=== PATIENT | female | born 1975 | race Caucasian/White ===

== ENCOUNTER → 2020-09-05 08:01 | Outpatient (CLI) | payer OTHER, SELFPAY ==
--- NOTE | ~2020-09-05 | MM_ITS ---
EXAMINATION: MM screening lizz BI w real HISTORY: Screening TECHNIQUE: Craniocaudal and mediolateral oblique 3-D tomosynthesis images were obtained and synthetic 2-D images were generated. CAD analysis was submitted and interpreted. COMPARISON: No prior studies for comparison. BREAST PARENCHYMAL COMPOSITION: There are scattered areas of fibroglandular density. FINDINGS: There is no evidence of suspicious mass, calcification, or architectural distortion to sugg est malignancy in either breast. There has been no suspicious interval change. IMPRESSION: 1. No mammographic evidence of malignancy. 2. Recommend routine screening mammography in one year. BI-RADS Category 1: Negative Reviewed, dictated and finalized at location A.
--- NOTE | ~2020-09-05 | DEXA_ITS ---
Bone Density Report Name: Bekah Petersen Age: 44 Sex: Female Ethnicity: White Date of : 1975 Indication: postmenopausal; Referring Provider: MARLENE GENAO Study: Bone densitometry was performed. Exam Date: September 05, 2020 Accession number: [id number] Bone Density: Region BMD T-score Z-score Classification AP Spine (L1-L4) 1.099 0.5 1.0 Normal Femoral Neck (Left) 0.821 -0.3 0.3 Normal Total Hip (Left) 0.949 0.1 0.4 Normal Femoral Neck (Right) 0.820 -0.3 0.3 Normal Total Hip (Right) 0.966 0.2 0.5 Normal Total Hip Mean 0.958 0.2 0.5 Normal World Health Organization criteria for BMD impression classify patients as: Normal (T-score at or above -1.0), Osteopenia (T-score between -1.0 and -2.5), or Osteoporosis (T-score at or below -2.5). 10-year Fracture Risk: FRAX not reported because: All T-scores for Spine Total, Hip Total, Femoral Neck at or above -1.0 Clinical Information Provided by Patient: Has used the following medications: Calcium, calcium includes vit D Patient maximum height was 68 Menopause Age: 41 Drinks caffeinated beverages Onset of menses at age 8 Number of children 2 Impression: The patient has normal bone mass. Discussion: BONE DENSITY IS ABOVE THE MINIMUM DESIRABLE LEVEL AT ALL SKELETAL SITES TESTED. This patient?s bone mineral density is above the minimum desirable level (T-score -1.0 or better) at all sites measured. The patient should follow a healthful lifestyle (good nutrition with adequate calcium and vitamin D, and appropriate weight-bearing exercise). Follow-Up: Consider repeating this study in 5 years or sooner if there is some new clinical indication. Reported by: CHRISTOPH on 09/05/2020 9:00:00 AM. Reviewed, dictated and finalized at location A. [facility] SYSTEMNahomi
== END ==
PROVIDERS: PCP Emergency Medicine; Visit Provider Emergency Medicine
DX: Z12.31 Encounter for screening mammogram for malignant neoplasm of breast (principal); Z78.0 Asymptomatic menopausal state
CPT/HCPCS: 77063; 77067; 77080

== ENCOUNTER → 2022-08-17 10:51 | Outpatient (CLI) | payer OTHER, SELFPAY ==
--- NOTE | ~2022-08-17 | MM_ITS ---
EXAMINATION: MM screening lizz BI w real HISTORY: Screening mammogram TECHNIQUE: Craniocaudal and mediolateral oblique 3-D tomosynthesis images were obtained and synthetic 2-D images were generated. CAD analysis was submitted and interpreted. COMPARISON: 09/05/2020 bilateral screening mammogram BREAST PARENCHYMAL COMPOSITION: There are scattered areas of fibroglandular density. FINDINGS: There is no evidence of suspicious mass, calcification, or architectural distortion to sugg est malignancy in either breast. There has been no suspicious interval change. IMPRESSION: 1. No mammographic evidence of malignancy. 2. Recommend routine screening mammography in one year. BI-RADS Category 1: Negative Reviewed, dictated and finalized at location A.
== END ==
PROVIDERS: PCP Obstetrics & Gynecology; Visit Provider Emergency Medicine
DX: Z12.31 Encounter for screening mammogram for malignant neoplasm of breast (principal)
CPT/HCPCS: 77063; 77067

== ENCOUNTER 2024-08-22 10:58 | Outpatient (CLI) | payer OTHER, SELFPAY ==
--- NOTE | ~2024-08-22 | DEXA_ITS ---
Bone Density Report Name: NOEMY GRAYSON Age: 48 Sex: Female Ethnicity: White Date of : 1975 Indication: postmenopausal; screening for osteoporosis; height loss; Referring Provider: LIZETTE, ANDRIY Magallon Study: Bone densitometry was performed. Exam Date: August 22, 2024 Accession number: [id number] Bone Density: Region BMD T-score Z-score Classification AP Spine(L1-L4) 1.053 0.1 0.8 Normal Femoral Neck (Left) 0.767 -0.7 0.0 Normal Total Hip (Left) 0.885 -0.5 0.0 Normal Femoral Neck (Right) 0.760 -0.8 0.0 Normal Total Hip (Right) 0.931 -0.1 0.4 Normal Total Hip Mean 0.908 -0.3 0.2 Normal World Health Organization criteria for BMD impression classify patients as: Normal (T-score at or above -1.0), Osteopenia (T-score between -1.0 and -2.5), or Osteoporosis (T-score at or below -2.5). 10-year Fracture Risk: FRAX not reported because: All T-scores for Spine Total, Hip Total, Femoral Neck at or above -1.0 Clinical Information Provided by Patient: Has used the following medications: Vitamin D, Calcium Patient maximum height was 68 Menopause Age: 41 Drinks caffeinated beverages Onset of menses at age 8 Number of children 2 Impression: The patient has normal bone mass. Discussion: BONE DENSITY IS ABOVE THE MINIMUM DESIRABLE LEVEL AT ALL SKELETAL SITES TESTED. This patient?s bone mineral density is above the minimum desirable level (T-score -1.0 or better) at all sites measured. The patient should follow a healthful lifestyle (good nutrition with adequate calcium and vitamin D, and appropriate weight-bearing exercise). Follow-Up: Consider repeating this study in 5 years or sooner if there is some new clinical indication. Reported by: GRISEL on 08/22/2024 11:35:00 AM. Reviewed, dictated and finalized at location A.
--- OUTSIDE RECORDS SUMMARY | 2024-08-22 11:03 | XMS_ITS | Encounter Summary ---
Author Organization [facility] Address [address] [facility] [facility] [place] [address] Care Team Providers Care Healthcare Administration Internship Name Role Phone Unavailable Primary Care Provider Unavailabl e Encounter Details Date Type Department Care Team (Late st Contact Info) Description 01/02/2023 Lab Requisition [facility] - DermPath Lab [address] [facility], [place] [address] Neela Pineda DO [address] [facility] [address] [place] [address] Social History Tobacco Use Types Packs/Day Years Used Date Smoking Tobacco: Never Assessed Comments Unknown Sex and Gender Information Value Date Recorded Sex Assigned at Not on file Legal Sex Female 10:15 AM BLADDER TIER Gender Identity Not on file Sexual Orientation Not on file documented as of this encounter Plan of Treatment Not on file documented as of this encounter Procedures Procedure Name Priority Date/Time Associated Diagnosis Comments DERMATOPATHOLOGY Routine 01/02/2023 10:0 2 AM BLADDER TIER documented in this encounter Results * DERMATOPATHOLOGY (01/02/2023 10:02 AM BLADDER TIER) Case Report Dermatopathology Report Case: [id number] Authorizing Provider: Neela Pineda DO Collected: 01/02/2023 10:02 AM Ordering Location: [facility] DermPath Lab Received: 01/04/2023 08:00 AM Pathologist: Teresa Flores MD Specimen: Skin, right htigh 12:55 PM BLADDER TIER DERMATOPATHOLOGY LABORATORY Final Diagnosis Specimen A. SKIN, right thigh: NEVUS LIPOMATOSUS SUPERFICIALIS (D17.30) 12:55 PM BLADDER TIER DERMATOPATHOLOGY LABORATORY at 1255 BLADDER TIER Clinical History Nev-LIP vs IDN Irritated 3 12:55 PM [facility] DERMATOPATHOLOGY LABORATORY Gross Description Specimen A: Received is one formalin filled container labeled with the patient's name and designated right thigh. The specimen consists of a shave biopsy measuring 10x7x5 mm. Jar 0. 3 12:55 PM [facility] DERMATOPATHOLOGY LABORATORY Microscopic Description Specimen A. SKIN, right thigh: There is a gently folded epidermis surrounding a connective tissue core in which fat and collagen are intermingled. 3 12:55 PM [facility] DERMATOPATHOLOGY LABORATORY Disclaimer An external and internal positive and negative controls are appropriate for the histochemical, immunohistochemical and immunofluorescence stain(s) in this case (if any), except where stated explicitly. The performance characteristics of the stain(s) cited in this report were developed and its performance characteristic determined by the Dermatopathology Laboratory at [facility], directed by Dr. Katia Quinn. These tests need not be, and therefore are not, approved by the [place] Food and Drug Administration. The tests are used for clinical purposes. Billing Codes Specimen Charges Stain Charges 04618 1 3 12:55 PM [facility] DERMATOPATHOLOGY LABORATORY Embedded Images 3 12:55 PM [facility] DERMATOPATHOLOGY LABORATORY Pathology/Cytolo gy TISSUE SPECIMEN FROM SKIN / Unknown 01/02/2023 10:02 AM BLADDER TIER 01/04/2023 8:00 AM BLADDER TIER us Neela Pineda DO LAB - PATHOLOGY/CYTOLOGY ORDERABLES Final Result DERMATOPATHOLOGY LABORATORY [facility] - Department of Dermatology [address], [address] [phone] documented in this encounter Visit Diagnoses Not on filedocumented in this encounter
--- OUTSIDE RECORDS SUMMARY | 2024-08-22 11:03 | XMS_ITS | Referral Summary ---
Author Organization [facility] [address] Address [address] [place] [address] Care Team Providers Care Sugar Plantation Manager Name Role Phone Andrew Zabala MD Primary Care Provider [phone] Allergies Active Allergy Reactions Criticality Noted Date Comments Penicillins Hives Reaction: HIVES, Medications triamcinolone (KENALOG) 0.1 % creamIndications :skin rash Apply topically 2 (two) times a day for 7 days Do not apply to face around eyes or to genitals 30 g 4 Active predniSONE (DELTASONE) 10 mg tabletIndication s:Rash and nonspecific skin eruption Take 3 tabs days 1 & 2, 2 tabs days 3 & 4, 1 tab days 5-7. 13 tablet 4 Active Active Problems No known active problems Social History Tobacco Use Types Packs/Day Years Used Date Smoking Tobacco: Never Comments Unknown Sex and Gender Information Value Date Recorded Sex Assigned at Not on file Legal Sex Female 9:11 AM FLOORWORKER DISTRIBUTOR Gender Identity Not on file Sexual Orientation Not on file Last Filed Vital Signs Vital Sign Reading Time Taken Comments Blood Pressure 131/82 01/14/2024 9:27 AM FLOORWORKER DISTRIBUTOR Pulse 57 01/14/2024 9:27 AM FLOORWORKER DISTRIBUTOR Temperature 37 C (98.6 F) 01/14/2024 9:27 AM FLOORWORKER DISTRIBUTOR Respiratory Rate 16 01/14/2024 9:27 AM FLOORWORKER DISTRIBUTOR Oxygen Saturation 100% 01/14/2024 9:27 AM FLOORWORKER DISTRIBUTOR Inhaled Oxygen Concentration - - Weight 68 kg (150 lb) 01/14/2024 9:27 AM FLOORWORKER DISTRIBUTOR Height 170.2 cm (5' 7) 01/14/2024 9:27 AM FLOORWORKER DISTRIBUTOR Body Mass Index 23.49 01/14/2024 9:27 AM FLOORWORKER DISTRIBUTOR Plan of Treatment Not on file Procedures Procedure Name Priority Date/Time Associated Diagnosis Comments SCREENING MAMMOGRAM BILATERAL W DAMIR Routine 12/03/2015 12:00 AM CDT from Last 3 Months or Most Recently Relevant to Health Maintenance Results * Screening Mammogram Bilateral W Damir (12/03/2015 12:00 AM CDT) Anatomical Region Laterality Modality Breast Bilateral Mammography 12/03/2015 12:1 5 PM CDT Narrative 12/08/2015 10:02 AM CDT - SCREENING MAMM W DAMIR BI BILATERAL FIRST EVER DIGITAL SCREENING MAMMOGRAM 3D/2D WITH CAD: 12/03/2015 CLINICAL: Routine screening. Routine checkup. Patient has no complaints. Baseline examination. No prior exams were available for comparison. There are scattered fibroglandular elements in both breasts. Current study was also evaluated with a Computer Aided Detection (CAD) system. No significant masses, calcifications, or other findings are seen in either breast. IMPRESSION: NEGATIVE There is no mammographic evidence of malignancy. A 1 year screening mammogram is recommended. The patient will be contacted by letter. Mariela Delatorre M.D. o/penrad:12/08/2015 07:51:47 letter sent: Normal Exam Mammogram BI-RADS: 1 Negative Radiologist: MARIELA DELATORRE MD Attending: KRISTEN DE LEÓN M.D. Requesting: KRISTEN DE LEÓN M.D. Requesting Requesting ID: [id number] Attending Attending ID: [id number] Completed Time: 12/03/2015 12:15 AM Dictated Time: N/A Transcribed Time: 12/08/2015 10:02 AM Signed by: MARIELA DELATORRE MD on 12/08/2015 10:02 AM Report To 1 ID: Report To 1 Name: , Report To 1 FAX: Report To 2 ID: Report To 2 Name: , Report To 2 FAX: Report To 3 ID: Report To 3 Name: , Report To 3 FAX: NextGen Order #: Procedure Note Provider, MD Jose Miguel - 06/28/2016 - SCREENING MAMM W DAMIR BI BILATERAL FIRST EVER DIGITAL SCREENING MAMMOGRAM 3D/2D WITH CAD: 12/03/2015 CLINICAL: Routine screening. Routine checkup. Patient has no complaints. Baseline examination. No prior exams were available for comparison. There are scattered fibroglandular elements in both breasts. Current study was also evaluated with a Computer Aided Detection (CAD) system. No significant masses, calcifications, or other findings are seen in either breast. IMPRESSION: NEGATIVE There is no mammographic evidence of malignancy. A 1 year screening mammogram is recommended. The patient will be contacted by letter. Mariela Delatorre M.D. o/penrad:12/08/2015 07:51:47 letter sent: Normal Exam Mammogram BI-RADS: 1 Negative Radiologist: MARIELA DELATORRE MD Attending: KRISTEN DE LEÓN M.D. Requesting: KRISTEN DE LEÓN M.D. Requesting Requesting ID: [id number] Attending Attending ID: [id number] Completed Time: 12/03/2015 12:15 AM Dictated Time: N/A Transcribed Time: 12/08/2015 10:02 AM Signed by: MARIELA DELATORRE MD on 12/08/2015 10:02 AM Report To 1 ID: Report To 1 Name: , Report To 1 FAX: Report To 2 ID: Report To 2 Name: , Report To 2 FAX: Report To 3 ID: Report To 3 Name: , Report To 3 FAX: NextGen Order #: Historical Provider MD PEDRAZA MAMMO PROCEDURES Khushi l Result from Last 3 Months or Most Recently Relevant to Health Maintenance Insurance [facility] [id number] Care Teams Sugar Plantation Manager Relationship Specialty Start Date End Date Andrew Zabala MD [address] [place] [address] [place] [address] PCP - General Family Medicine 10/13/21
--- OUTSIDE RECORDS SUMMARY | 2024-08-22 11:03 | XMS_ITS | Encounter Summary ---
Author Organization [facility] Address [address] [place] [address] Care Team Providers Care Php Website Developer Name Role Phone Unavailable Primary Care Provider Unavailabl e Encounter Details Date Type Department Care Team (Late st Contact Info) Description 01/25/2024 Lab Requisition [facility] - DermPath Lab [address] [facility], [place] [address] Neela Pineda DO [address] [facility] [address] [place] [address] Social History Tobacco Use Types Packs/Day Years Used Date Smoking Tobacco: Never Assessed Comments Unknown Sex and Gender Information Value Date Recorded Sex Assigned at Not on file Legal Sex Female 10:15 AM MIXED SIGNAL DESIGN ENGINEER Gender Identity Not on file Sexual Orientation Not on file documented as of this encounter Plan of Treatment Not on file documented as of this encounter Procedures Procedure Name Priority Date/Time Associated Diagnosis Comments DERMATOPATHOLOGY Routine 01/25/2024 2:26 PM MIXED SIGNAL DESIGN ENGINEER documented in this encounter Results * DERMATOPATHOLOGY (01/25/2024 2:26 PM MIXED SIGNAL DESIGN ENGINEER) Case Report Dermatopathology Report Case: [id number] Authorizing Provider: Neela Pineda DO Collected: 01/25/2024 02:26 PM Ordering Location: [facility] - Received: 01/26/2024 01:59 PM DermPath Lab Pathologist: Teresa Flores MD Specimen: Skin, left wrist 1:40 PM MIXED SIGNAL DESIGN ENGINEER DERMATOPATHOLOGY LABORATORY Final Diagnosis Specimen A. SKIN, left wrist: SPONGIOTIC AND INTERFACE DERMATITIS (L30.8) (see microscopic description and comment) 4 1:40 PM MIXED SIGNAL DESIGN ENGINEER DERMATOPATHOLOGY LABORATORY at 1340 MIXED SIGNAL DESIGN ENGINEER Clinical History R/O ACD vs Lichen Striatus vs Sporotrichosis vs Wolfs vs Other 4 1:40 PM [facility] DERMATOPATHOLOGY LABORATORY Gross Description Specimen A: Received is one formalin filled container labeled with the patient's name and designated left wrist. The specimen consists of a punch biopsy measuring 3x2x1 mm. Jar 0. 1:40 PM [facility] DERMATOPATHOLOGY LABORATORY Microscopic Description Specimen A. SKIN, left wrist: Epidermis with superficial and mid dermis are present for evaluation. There is focal parakeratosis and mild spongiosis of the epidermis. In addition, there is focal vacuolar alteration along the basal cell layer. In the dermis there is a mainly superficial perivascular lymphoid infiltrate. Eosinophils are not seen. Focal perieccrine lymphoid infiltrate is seen. Grocott's methenamine silver (GMS) stain is negative for fungal elements in the sections examined. CD163 immunostain reveals scattered histiocytes. Treponema pallidum immunostain does not reveal spirochetes. WALE stain is negative for acid-fast mycobacteria in the sections examined. Multiple additional deeper sections were obtained and reviewed. COMMENT: The histologic differential diagnosis includes lichen planus, connective tissue disease, lichen striatus, and less likely a lichenoid hypersensitivity reaction, such as to contact or drug, given the lack of eosinophils. Stevenson's isotopic response cannot be excluded. 4 1:40 PM [facility] DERMATOPATHOLOGY LABORATORY Disclaimer An external and internal positive and negative controls are appropriate for the histochemical, immunohistochemical and immunofluorescence stain(s) in this case (if any), except where stated explicitly. The performance characteristics of the stain(s) cited in this report were developed and its performance characteristic determined by the Dermatopathology Laboratory at [facility], directed by Dr. Katia Quinn. These tests need not be, and therefore are not, approved by the [place] Food and Drug Administration. The tests are used for clinical purposes. Billing Codes Specimen Charges Stain Charges 13358 1 80033 98361 47086 33677 1 1 1 1 4 1:40 PM [facility] DERMATOPATHOLOGY LABORATORY Embedded Images 1:40 PM [facility] DERMATOPATHOLOGY LABORATORY Pathology/Cytolo gy TISSUE SPECIMEN FROM SKIN / Unknown 01/25/2024 2:26 PM MIXED SIGNAL DESIGN ENGINEER 01/26/2024 1:59 PM MIXED SIGNAL DESIGN ENGINEER us Neela Pineda DO LAB - PATHOLOGY/CYTOLOGY ORDERABLES Final Result DERMATOPATHOLOGY LABORATORY [facility] - Department of Dermatology [facility] Medicine [address] [place] [address], [address] [phone] documented in this encounter Visit Diagnoses Not on filedocumented in this encounter
--- OUTSIDE RECORDS SUMMARY | 2024-08-22 11:03 | XMS_ITS | Clinical Summary ---
Author Organization [facility] Address [address] [place] [address] Care Team Providers Care Computer Tape Librarian Name Role Phone Unavailable Primary Care Provider Unavailabl e Source Comments [facility],non-owned Affiliates and Associated Physician Practices is amultiple site organization consisting of ambulatory clinics and hospital sitesin [place], [place], [place] and [place]. This disclosure is being madepursuant to the Care Everywhere program and may not contain all information available regarding this patient. Last updated 17.[facility] Social History Tobacco Use Types Packs/Day Years Used Date Smoking Tobacco: Never Assessed Comments Unknown Sex and Gender Information Value Date Recorded Sex Assigned at Not on file Legal Sex Female 10:15 AM POLYMERIZATION ENGINEER Gender Identity Not on file Sexual Orientation Not on file Plan of Treatment Health Maintenance Due Date Last Done Comments COLOGUARD (AGES 45-75) - COL ON CA SCREENING 1973 COLON MONITORING 1973 COLONOSCOPY - COLON CA SCREENING 1973 CT COLONOGRAPHY - COLON CA SCREENING 1975 Colorectal Cancer Screening 1973 FIT - COLON CA SCREENING 1973 FLEX SIG - COLON CA SCREENING 1973 LIPID TESTING 1975 MAMMOGRAM 1973 HIV SCREENING 1988 HEPATITIS C SCREENING 11/23/1991 DTAP/TDAP/TD VACCINES (1 - Tdap) 1992 HEPATITIS B VACCINE (1 of 3 - 19+ 3-dose series) 1992 PAP SMEAR 1994 COVID-19 VACCINE (1 - 2023-2 5 season) 2023 PNEUMOCOCCAL VACCINE 50+ (1 of 1 - PCV) 11/28/2023 ZOSTER VACCINE (1 of 2) 11/28/2023 DEPRESSION SCREENING 02/21/2024 INFLUENZA VACCINE (Season Ended) 2024 HIB VACCINE Aged Out No longer eligi ble based on patient's age to complete this topic HPV VACCINE Aged Out No longer eligi ble based on patient's age to complete this topic MENINGOCOCCAL (Group B) VACC INE SHARED DECISION-MAKING Aged Out No longer eligibl e based on patient's age to complete this topic MENINGOCOCCAL GROUPS A/C/Y/W VACCINE Aged Out No longer eligible b ased on patient's age to complete this topic Insurance [employer]
--- OUTSIDE RECORDS SUMMARY | 2024-08-22 11:03 | XMS_ITS | Encounter Summary ---
Author Organization [facility] Address [address] [place] [address] Phone Care Team Providers Care Caustic Room Operator Name Role Phone Andrew Zabala Primary Care Provider [phone] Ming Cook MD Unavailable [phone] Encounter Details Date Type Department Care Team (Late st Contact Info) Description 03/04/2021 Telephone [facility] [address] [address] Ming Cook MD [address] [facility] [place] [address] [address] Social History Tobacco Use Types Packs/Day Years Used Date Smoking Tobacco: Never Smokeless Tobacco: Never Alcohol Use Standard Drinks/Week Comments Yes 2 (1 standard drink = 0.6 oz pur e alcohol) PHQ-2 Answer Date Recorded Total Score - Questions 1-9 1 08/20 Comments Unknown Sex and Gender Information Value Date Recorded Sex Assigned at Not on file Legal Sex Female 3:09 PM CDT Gender Identity Not on file Sexual Orientation Not on file documented as of this encounter Miscellaneous Notes * Telephone Encounter - Tiffanie Mukherjee - 03/04/2021 1:30 PM CST PT HAD AN OFFICE APPT SCHEDULED TO, NO SHOW, CALLED PT, LEFT V/M, LETTER SENT LABORER documented in this encounter Plan of Treatment Not on file documented as of this encounter Visit Diagnoses Not on filedocumented in this encounter Additional Health Concerns Assessment Noted Time PHQ-9 Depression Total Score: 1 09/04/19 21 2:18 PM CDT documented as of this encounter Care Teams Caustic Room Operator Relationship Specialty Start Date End Date Andrew Zabala [address] [place] [address] PCP - General Family Medicine 08/19/20 Ming Cook MD [address] [place] [address] Consulting Physician Oncology 08/19/20 documented as of this encounter
--- OUTSIDE RECORDS SUMMARY | 2024-08-22 11:03 | XMS_ITS | Clinical Summary ---
Author Organization [facility] Address [address], [address] [place] [address] Phone Care Team Providers Care Foot Worker Name Role Phone Andrew Zabala Primary Care Provider [phone] Ming Cook MD Unavailable [phone] Allergies Active Allergy Reactions Criticality Noted Date Comments Penicillins Other (see Comments) 07/14/2020 Medications ergocalciferol (VITAMIN D) 69808 UNIT Capsule take one capsule orally once per week 08/19/2020 Active Calcium Carbonate-Vit D-Min (CALCIUM 1200 PO) Take by mouth. Active Active Problems Problem Noted Date Diagnosed Date Prothrombin gene mutation 09/03/2020 Family History Medical History Relation Name Comments Diabetes Brother Diabetes Father Hypertension Father Diabetes Maternal Grandmother Breast Cancer Mother Diabetes Paternal Grandfather Hypertension Paternal Grandfather Diabetes Paternal Grandmother Hypertension Paternal Grandmother Relation Name Status Comments Brother Father Maternal Grandmother Mother Natural Child Other pmdd Paternal Grandfather Paternal Grandmother Social History Tobacco Use Types Packs/Day Years [...] Sign Reading Time Taken Comments Blood Pressure 122/76 09/03/2020 2:14 PM CDT Pulse 95 09/03/2020 2:14 PM CDT Temperature 36.3 C (97.3 F) 09/03/2020 2:14 PM CDT Respiratory Rate 18 09/03/2020 2:14 PM CDT Oxygen Saturation 97% 09/03/2020 2:14 PM CDT Inhaled Oxygen Concentration - - Weight 73.6 kg (162 lb 3.2 oz) 09/03/2020 2:14 P M CDT Height 171.5 cm (5' 7.5) 09/03/2020 2:14 PM CDT Body Mass Index 25.03 09/03/2020 2:14 PM CDT Plan of Treatment Health Maintenance Due Date Last Done Comments Hepatitis C Virus (HCV) Screening 1975 TdaP Immunization 1973 Hepatitis B Immunization (1 of 3 - 19+ 3-dose series) 1992 Colonoscopy 2018 Colorectal Cancer Screening 2018 SARS-COV-2 Immunization (2023- season) 2023 06/11/2020, 05/14/2020 Cologuard 11/28/2023 Immunochemical Fecal Occult Blood 11/28/2023 Pneumococcal Immunization (5 0+ years) (1 of 1 - PCV) 11/28/2023 Zoster Immunization (1 of 2) 11/28/2023 Influenza Immunization (Seas on Ended) 2024 Respiratory Syncytial Virus (RSV) Immunization (Adult) (1 - 1-dose 75+ series) 2048 Human Papillomavirus (HPV) Immunization Aged Out No longer eligible b ased on patient's age to complete this topic Meningococcal Immunization (ACWY) Aged Out No longer eligible b ased on patient's age to complete this topic Rotavirus Immunization Aged Out No lo nger eligible based on patient's age to complete this topic [facility] Care Teams Foot Worker Relationship Specialty Start Date End Date Andrew Zabala [address] [place] [address] PCP - General Family Medicine 08/19/20 Ming Cook MD [address] [place] [address] Consulting Physician Oncology 08/19/20
--- OUTSIDE RECORDS SUMMARY | 2024-08-22 11:03 | XMS_ITS | Clinical Summary ---
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 Temperature 37 C (98.6 F) 01/14/2024 9:27 AM 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 Respiratory Rate 16 01/14/2024 9:27 AM 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 Oxygen Saturation 100% 01/14/2024 9:27 AM 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 Inhaled Oxygen Concentration - - Weight 68 kg (150 lb) 01/14/2024 9:27 AM 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 Height 170.2 cm (5' 7) 01/14/2024 9:27 AM 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 Body Mass Index 23.49 01/14/2024 9:27 AM 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 Plan of Treatment Health Maintenance Due Date Last Done Comments Cervical Cancer Screening 1973 Colon Cancer Screening-Colonoscopy 1973 Depression Screening 1973 Hepatitis C Screening 1973 DTaP/Tdap/Td Vaccine (1 - Tdap) 1984 Hepatitis B Screening 11/28/1991 Regular Well Visit/Exam 18-64 11/28/1991 Breast Cancer Screening-Mammogram 12/02/2016 12/03/2015 Covid-19 Vaccine (4 - 2023-2 5 season) 2023 01/23/2021, 06/11/2020, 05/14/2020 Zoster Vaccine (1 of 2) 11/28/2023 Influenza Vaccine (#1) 2024 Pneumococcal vaccine <65 Aged Out No longer eligible based on patient's age to complete this topic Procedures Procedure Name Priority Date/Time Associated Diagnosis [...] patient will be contacted by letter. Mariela lópez/brenda:12/08/2015 07:51:47 letter sent: Normal Exam Mammogram BI-RADS: 1 Negative Radiologist: MARIELA DELATORRE MD Attending: KRISTEN DE LEÓN M.D. Requesting: KRISTEN DE LEÓN M.D. Requesting Requesting ID: [id number] Attending Attending ID: [id number] Completed Time: 12/03/2015 12:15 AM Dictated Time: [...] be contacted by letter. Mariela Delatorre M.D. [facility]/08/2015 07:51:47 letter sent: Normal Exam Mammogram BI-RADS: 1 Negative Radiologist: MARIELA DELATORRE MD Attending: KRISTEN DE LEÓN M.D. Requesting: KRISTEN DE LEÓN M.D. Requesting Requesting ID: [id number] Attending Attending ID: [id number] Completed Time: 12/03/2015 12:15 AM Dictated Time: [...] Report To 3 FAX: NextGen Order #: [id number] Historical Provider MD P[facility] PROCEDURES Khushi l Result from Last 3 Months or Most Recently Relevant to Health Maintenance Insurance [facility] [id number] Care Teams Snath Handle Assembler Relationship Specialty Start Date End Date Andrew Zabala MD [address] [place] [address] PCP - General Family Medicine 10/13/21
--- OUTSIDE RECORDS SUMMARY | 2024-08-22 11:04 | XMS_ITS | Data Portability ---
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 Patient will come back in a year unless there are new symptoms. Not available 08/15/2022 15:29:40 03/07/2024 03/07/2024 Annual gynecological exam performed. Patient will come back in a year unless there are new symptoms. Not available 03/07/2024 16:42:22 Plan of Treatment Reminders Order Date Submit Date Provider Last Modified By Organization Details Last Modified Time Details Appointments None recorded. Lab test, urine 2024 025 cherelle [place], [address], [place], [address], 11:58:07 Referral None recorded. Procedures None recorded. Surgeries None recorded. Imaging US, pelvis 2024 025 desiree [place], [address], [place], [address], 20:48:58 US, transvagina l 2024 025 desiree [place], [address], [place], [address], 5 20:48:58 US, pelvis, complete [address] [facility], [address], [place], [address], 5 18:43:23 DEXA, axial skeleton + vertebral fracture assessment [address] [facility], [address], [place], [address], 5 18:43:23 MAMMO, screening, digital, bilateral [address] [facility], [address], [place], [address], 5 18:43:23 Medication Orders estradiol 0.01% (0.1 mg/gram) vaginal cream 2024 025 [facility][id number], [address] [place], [address], 5 09:29:42 estradiol 0.01% (0.1 mg/gram) vaginal cream 2022 023 [facility] #[id number], [address] [place], [address], 3 16:16:18 Patient TargetsNo targets recorded. Patient InstructionsNo instructions recorded. Reason for Referral None Reported. Results Created Date Observation Date Name Description Value Unit Range Abnormal Flag Note LastModifiedBy Organization Detail LastModifiedTime 08/16/1908/15/2022 SURGI CUCA PATHO LOGY surgical pathology SEE RESULT S BELOW CASE REPOR T: Surgi cuca Patho logy Repor t Case: [id number] Autho ramesh ramires Provi jamel: Yuki Max MD Colle cted: 08/15 1625 Order ing Locat ion: [place] Patho log[facility] Recei abimbola: 08/16 0541 Patho logis t: Dewey Woodall MD Speci men: Cervi x, Cervi cuca polyp FINAL DIAGN OSIS: Cervi x, polyp : -Pio gn endoc ervic al polyp . Elect yang ribeiro celina d by Dewey Woodall MD on 2022 at 3:36 PM ----- ----- ----- ----- ----- ----- ----- ----- ----- ----- ----- ----- ----- ----- ----- ----- ----- ---- CLINI CUCA INFOR MATIO N: z01.4 19 MICRO SCOPI C DESCR IPTIO N: A micro scopi c exami natio n was perfo rmed. GROSS DESCR IPTIO N: A. Cervi x. The speci men is label ed with the patie nt's name, demog raphi cs and cerv ical polyp . Recei abimbola in forma josie is a 0.8 x 0.5 x 0.5 cm polyp oid fragm ent of red-t an tissu e. The speci men is bisec sharad and is submi tted all in one casse tte. Gross ed by Roberta weinberg Not Available [facility] (Lab) [address], [place], [address], 08/17/2022 12:47:35 08/16/19 23 08/15/2022 IMAGE GUIDE D PAP AND HPV REGAR DLESS image guided Pap, HPV regardless of Pap result SEE RESULT S BELOW CASE REPOR T: Cytol ogy Gynec ologi cuca Repor t Case: [id number] Autho ramesh ramires Provi jamel: Yuki Max MD Colle cted: 08/15 1625 Order ing Locat ion: [place] Patho logy Recei abimbola: 08/16 0710 First Scree n: Tony Pedroza, CT Speci men: Scree ellie Pap - Image d, Cervi x STATE MENT OF ADEQU ACY: Satis facto ry for evalu ation Trans forma tion zone compo nent prese nt FINAL DIAGN OSIS: Negat helen for Intra epith elial Lesio n or Jess cain (NIL) . Atrop hy prese nt. Elect yang ribeiro celina d by Tony Pedroza, CT on 2022 at 11:44 AM ----- ----- ----- ----- ----- ----- ----- ----- ----- ----- ----- ----- ----- ----- ----- ----- ----- ---- HPV RESUL TS: HPV mRNA E6/E7 : No HPV mRNA Detec sharad NOTE: This high risk HPV mRNA assay detec ts fourt een high- risk HPV types (16, 18, 31, 33, 35, 39, 45, 51, 52, 56, 58, 59, 66, 68) witho ut diffe renti ation . COMME NT: This speci men was revie wed by a Cytot echno logis t and/o r Patho logis t (as indic ated in this repor t) after evalu ation using the Thinp rep Imagi ng Syste m. CLINI CUCA INFOR MATIO N: Menst rual Statu s: LMP (if appli cable ): Clini cuca Histo ry/Pr eviou s Pap: Type of Neopl rudy (if appli cable ): Signi fican t Clini cuca Findi ngs: Other Histo ry: Hormo isreal (if appli cable ): PAP EDUCA LUPE L NOTE: The Pap Test is a scree ellie test with an inher ent false negat helen rate. Liqui d-bas ed sampl ing may decre ase, but will not elimi anish, false negat helen resul ts. A negat helen resul t does not precl ude the prese nce and/o r devel opmen t of disea se, since the prese nce of abnor mal cells in the sampl e depen ds on the locat ion of the lesio n and sampl ing techn ique. Mayra nued regul ar screivy argueta is the best metho d of cance r preve ntion . If repor sharad cytol ogic findi ng do not corre late with physi cuca and/o r histo rical findi ngs, furth er inves tigat ion is recom isacc d, as clini nalini stewart nted. Not Available [facility] (Lab) [address], [place], [address], 08/17/2022 12:47:36 03/07/19 25 03/07/2024 IMAGE GUIDE D PAP AND HPV REGAR DLESS image guided Pap, HPV regardless of Pap result SEE RESULT S BELOW CASE REPOR T: Cytol ogy Gynec ologi cuca Repor t Case: [id number] Autho ramesh g Provi jamel: Marleny Jackson, LINO Colle cted: 03/07 1715 Order ing Locat ion: [place] Patho logy Recei abimbola: 03/08 0255 First Scree n: Kishor jackson, Joao conklin, CT Speci men: Yury argueta Pap - Image d, Cervi x STATE MENT OF ADEQU ACY: Satis facto ry for evalu ation Trans forma tion zone compo nent prese nt ----- ----- ----- ----- ----- ----- ----- ----- ----- ----- ----- ----- ----- ----- ----- ----- ----- ---- FINAL DIAGN OSIS: Negat helen for Intra epith elial Lesio n or Jess cain (NIL) . Dionne patrick d by Joao jackson, CT on 2024 at 0820 SITE INSPECTOR ----- ----- ----- ----- ----- ----- ----- ----- ----- ----- ----- ----- ----- ----- ----- ----- ----- ---- HPV RESUL TS: HPV mRNA E6/E7 : No HPV mRNA Detec sharad NOTE: This high risk HPV mRNA assay detec ts fourt een high- risk HPV types (16, 18, 31, 33, 35, 39, 45, 51, 52, 56, 58, 59, 66, 68) witho ut diffe renti ation . COMME NT: This speci men was revie wed by a Cytot echno logis t and/o r Patho logis t (as indic ated in this repor t) after evalu ation using the Thinp rep Imagi ng Syste m. CLINI CUCA INFOR MATIO N: Menst rual Statu s: LMP (if appli cable ): Clini cuca Histo ry/Pr eviou s Pap: Type of Neopl rudy (if appli cable ): Signi fican t Clini cuca Findi ngs: Other Histo ry: Hormo isreal (if appli cable ): PAP EDUCA LUPE L NOTE: The Pap Test is a scree ellie test with an inher ent false negat helen rate. Liqui d-bas ed sampl ing may decre ase, but will not elimi anish, false negat helen resul ts. A negat helen resul t does not precl ude the prese nce and/o r devel opmen t of disea se, since the prese nce of abnor mal cells in the sampl e depen ds on the locat ion of the lesio n and sampl ing techn ique. Mayra nued regul ar scree ellie is the best metho d of cance r preve ntion . If repor sharad cytol ogic findi ng do not corre late with physi cuca and/o r histo rical findi ngs, furth er inves tigat ion is recom isacc d, as clini nalini stewart nted. Not Available [facility] (Lab) [address], [place], [address], 03/14/2024 09:25:25 04/11/1904/11/2024 SURGI CUCA PATHO LOGY surgical pathology SEE RESULT S BELOW CASE REPOR T: Surgi cuca Patho logy Repor t Case: [id number] Autho ramesh ike Kenny jamel: Marleny Jackson, LINO Pacheco cted: 04/11 1102 Order ing Locat ion: [place] Patho logy Recei abimbola: 04/12 0136 Patho logis t: Ramana Avina MD Speci men: Cervi x, Cervi cuca polyp ----- ----- ----- ----- ----- ----- ----- ----- ----- ----- ----- ----- ----- ----- ----- ----- ----- ---- FINAL DIAGN OSIS: Cervi x, polyp ectom y: -Pio gn endoc stephanie al polyp . Elect yang capps by Ramana fleming MD on 2024 at 2151 SITE INSPECTOR ----- ----- ----- ----- ----- ----- ----- ----- ----- ----- ----- ----- ----- ----- ----- ----- ----- ---- CLINI CUCA INFOR MATIO N: POLYP OF CERVI X MICRO SCOPI C DESCR IPTIO N: A micro scopi c exami natio n was perfo rmed. GROSS DESCR IPTIO N: A. Cervi x. The speci men is label ed with the patie nt's name, demog ida cs and cerv ical polyp . Recei abimbola in forma josie is a 2.0 x 2.0 x 0.[address] of mucus and dark red tissu e. The entir e speci men is submi tted in one casse tte. Gross ed by Roberta weinberg Not Available [facility] (Lab) [address], [place], [address], 04/15/2024 00:00:01 04/11/19 25 04/11/2024 pregn prakash test, urine HCG negati ve Not Available [place] [address], [place], [address], 04/11/2024 10:38:04 08/18/19 23 08/17/2022 MAMMO , scree ellie, bilat eral No observ ation record ed. [email or web address] [place], [place], [address], 12/12/2022 15:25:04 03/21/19 25 03/21/2024 US, pelvi s No observ ation record ed. [email or web address] [place] [address], [place], [address], 03/21/2024 12:36:43 03/21/19 25 03/21/2024 US, trans vagin al No observ ation record ed. [email or web address] [place] [address], [place], [address], 03/21/2024 12:36:53 03/21/19 25 03/21/2024 US, pelvi s No observ ation record ed. [email or web address] [address], [place], [address], 04/05/2024 15:45:02 Result Notes None recorded. 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 Procedures Surgical History Date Name Laterality Status Provider Name and Address Organization Details Recorded Time 04/11/19 25 Skin Tag Removal completed AMIE Parker [address], [place], [address], [facility] 04/11/2024 11:55:38 03/07/19 25 Date of Last Pap Smear completed RUFUS Muniz [facility] 04/11/2024 10:34:42 02/20/19 25 Date of Last Colonoscopy completed Yoana Salguero [facility] 03/07/2024 16:47:41 02/20/20 24 [facility] 04/11/2024 10:27:17 08/18/19 23 Date of Last Mammogram completed RUFUS Muniz [facility] 04/11/2024 10:27:17 09/09/19 20 Most Recent Bone Density completed Swetha [facility] 08/15/2022 15:30:43 Dilation and Curettage completed Swetha [facility] 08/15/2022 15:31:00 Myomectomy completed [facility] 08/15/2022 15:31:00 Other completed Swetha Jones [facility] 08/15/2022 15:31:00 Caesarean Section completed Yoana Salguero [facility] 03/07/2024 16:48:58 Imaging Results None recorded. Procedure Notes None recorded. Medical Equipment None Reported. Allergies Allergen ID Allergen Name Allergen Category Reaction Reaction Severity Criticality Documentation Date Start Date Code Code System Note Provider Name and Address Organization Details Recorded Time Penicilli n Not available hives Not available Not available 08/15/2022 78925 RxNorm Swetha Jones null, [facility] 15:30:01 Medications Name Sig Start Date Stop Date Status Note LastModified by Organization Details LastModified Time prednison e 10 mg tablet 03/07 completed Not Available Not Available Not Available doxycycli ne monohydra te 100 mg tablet 03/07 completed Not Available Not Available Not Available triamcino lone acetonide 0.1 % topical cream active Not Available Not Available Not Available gabapenti n 300 mg capsule take 1 capsule by oral route 3 times every day 10/24 completed Prescrib ed Elsewher e: No Locat ion: [facility] odify By: joao [email or web address] DateTime : 07/26/19 10:30:00 AM Not Available Not Available Not Available clobetaso l 0.05 % topical ointment 03/07 completed Not Available Not Available Not Available estradiol 0.01% (0.1 mg/gram) vaginal cream INSERT 1G VAGINALL Y AT BEDTIME 2 TIMES PER WEEK active Not Available Not Available No t Available Vitamin D2 1,250 mcg (50,000 unit) capsule take 1 capsule by oral route every week 08/15 completed Prescrib ed Elsewher e: Yes [facility]ify By: jeanie greer DateTime : 11/03/19 19 02:45:00 PM Not Available Not Available Not Available multivita min capsule active Prescrib ed Elsewher e: Yes Loca tion: [facility] odify By: tatianaose E ncounter DateTime : 07/26/19 10:30:00 AM Not Available Not Available Not Available Calcium-5 00 500 mg (as calcium carbonate 1,250 mg) tablet take 1 tablet by oral route every day 03/07 completed Prescrib obie Hubbard e: Yes Loca tion: [facility] odify By: [email or web address] Encounte r DateTime : 11/03/19 02:45:00 PM Not Available Not Available Not Available Vitamin D 2,000 unit capsule Take by oral route. active Not Available Not Available No t Available BinaxNOW COVID-19 Ag Self Test kit Use as Directed on the Package 03/07 completed Not Available Not Available Not Available Vitals Date Recorded Body height Body mass index (BMI) Body weight Systolic And Diastolic Provider Name and Address Organization Details Last Updated DateTime 03/07/2024 170.18 cm 25.8 kg/m2 48070.3 g 134/84 mm[Hg] Yoana Salguero [facility] 03/07/2024 16:43:26 Date Recorded Body height Body mass index (BMI) Body weight Systolic And Diastolic Provider Name and Address Organization Details Last Updated DateTime 04/11/2024 170.18 cm 25.7 kg/m2 65030.15 g 134/78 mm[Hg] RUFUS Muniz [facility] 04/11/2024 10:29:28 Date Recorded Body height Body mass index (BMI) Body weight Systolic And Diastolic Provider Name and Address Organization Details Last Updated DateTime 08/15/2022 170.18 cm 25.1 kg/m2 64220.78 g 126/80 mm[Hg] Swetha Jones [facility] 08/15/2022 15:41:21 Social History Question Answer Notes LastModified by Organizat ion Details LastModified Time Tobacco Smoking Status Never Smoker [facility] 08/15/2022 15:42:09 Do You Have An Advance Directive? No Information n ot available 04/11/2024 How Many Years Have You Consumed Alcohol? 27 Information not available 08/15/2022 Are You Blind Or Do You Have Difficulty Seeing? No Information n ot available 08/15/2022 What Is Your Level Of Caffeine Consumption? Moderate Information not available 08/15/2022 How Much Tobacco Do You Chew? None Information not available 08/15/2022 In The 14 Days Before Symptom Onset, Have You Had Close Contact With A Laboratory-confirm ed COVID-19 While That Case Was Ill? No Information n ot available 08/15/2022 In The 14 Days Before Symptom Onset, Have You Had Close Contact With A Person Who Is Under Investigation For COVID-19 While That Person Was Ill? No Information not available 08/15/2022 Have You Been To An Area Known To Be High Risk For COVID-19? No Information not available 08/15/2022 Are You Deaf Or Do You Have Serious Difficulty Hearing? No Information not available 08/15/2022 What Type Of Diet Are You Following? REGULAR Information n ot available 08/15/2022 What Is The Highest Grade Or Level Of School You Have Completed Or The Highest Degree You Have Received? [id number] Information not available 08/15/2022 Are There Any Guns Present In Your Home? No [email or web address] Information not available 04/11/2024 Do You Use Protection During Sex? No Information not available 08/15/2022 Do You Use Your Seat Belt Or Car Seat Routinely? Yes Information not available 08/15/2022 Do You Have Smoke And Carbon Monoxide Detectors In Your Home? Yes Information not available 08/15/2022 How Much Tobacco Do You Smoke? No Information not available 08/15/2022 Do You Use Sunscreen Routinely? Yes Information not available 08/15/2022 Have You Used IV Drugs? No Information not available 08/15/2022 Sex: Unknown Functional Status Question Answer Note LastModified by Organizat ion Details LastModified Time Do you use any illicit or recreational drugs? No Information not available 08/15/2022 What is your level of alcohol consumption? Occasional Information not available 08/15/2022 Are you able to walk? 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 Moderate Information not available 08/15/2022 Mental Status Question Answer Note LastModified by Organization D etails LastModified Time Do you feel stressed (tense, restless, nervous, or anxious, or unable to sleep at night)? [id number] Information not available 08/15/2022 Family History Relationship Description Onset Age of this Age Resolved Age Notes LastModified by Organization Details LastModified Time Daughter Anxiety disorder Not available 2022 15:30:07 Brother Hypertensive disorder Not available 2022 15:30:07 Brother Kidney disease 46 [email or web address] Not available 2024 10:15:49 Father Hypertensive disorder Not available 2022 15:30:07 Father Kidney disease Not available 2022 15:30:07 Paternal Grandmother Hypertensive disorder Not available 2022 15:30:07 Paternal Grandmother Heart disease Not available 2022 15:30:07 Paternal Grandmother Osteoporosis Not available 08/15/2022 15:30:07 Mother Malignant tumor of breast Not available 2022 15:30:07 Maternal Grandmother Heart disease Not available 2022 15:30:07 Maternal Grandfather Substance abuse Not available 2022 15:30:07 Paternal Grandfather Disorder of lung Not available 2022 15:30:07 Paternal Grandfather Hypertensive disorder Not available 2022 15:30:07 Paternal Grandfather Heart disease Not available 2022 15:30:07 Medical History Condition Response Allergies (Food, seasonal, environmental ) N Other N Breast Cancer N Drug/Latex Allergies/Reactions N Blood Transfusion N Dermatologic Disorders N Lung Disease N Defects or Inherited Disease N Breast Problem N Gestational Diabetes N Hematologic disorders Y Anesthesia Complications N History of STI N Deep Vein Thrombosis N Polycystic ovary syndrome N Anxiety Disorder N Autoimmune disease N Arthritis N Infertility N Polyps N Acid Reflux (GERD) N History of abnormal pap N Cancer N Stroke N Varicosities N Neurologic/Epilepsy N Endometriosis N High Cholesterol N Headaches N Fibromyalgia N Kidney Disease N Heart Problems N Kidney or Bladder Problems N Thyroid Problems N GI Problems N Eating Disorder N Anemia N Art (IVF or FET) N Psychiatric Illness N Ovarian Cancer N Diabetes N Pulmonary (TB, Asthma) N Hepatitis/Liver Disease N No Past Medical History N Eczema N Urinary Tract Infection N Abuse/Domestic Violence N Asthma N Trauma/Violence N Depression/ depression N Heart Disease N Pre-Eclampsia N Hypertension N Osteoporosis N Thrombophilias N Gynecological History Statement/Question Response Abnormal Pap N Date of Last Mammogram 08/17/2022 Date of LMP 08/19/2018 On BCP's at Conception? N N STIs/STDs N HPV Vaccine N Current Control Method Menopause Age at First Child 30 If Post Menopausal, Age at Menopause 44 Date of Last Colonoscopy 02/21/2024 Most Recent Bone Density 09/09/2019 Sexually Active? Y Age of first menstrual cycle 8 Date of Last Pap Smear 03/07/2024 Sexual Problems? N Desired Control Method None LMP Unknown 02/20/2024 N Obstetrics History GPAL:G 3 P 2 0 1 2 Type Value Full Term 2 Spontaneous 1 Living 2 Total 3 Past Encounters Encounter ID Performer Location Encounter Start Date Encounter Closed Date Diagnosis/Indication Diagnosis SNOMED-CT Code Diagnosis ICD10 Code Diagnosis Note [id number] Sabino Max MD [place] [address] [address] 08/15/2022 15:23:51 08/15/2022 16:24:37 Gynecologic examination 06478696 Z01.419 Annual gynecologi cuca exam performed. Patient will come back in a year unless there are new symptoms. Suggest Calcium with Vitamin D if not eating in diet. Patient advised to get annual flu shot. Recommend yearly physicals and preform monthly breast exams. Genetic testing is available for patients with family history of cancer. Engage in safe sexual practices, use condoms. Encouraged to have daily exercise. Avoid tobacco and illicit drugs, moderation of alcohol. If BMI greater than 25 dietary consult advised. If you have any questions please call or email. Mammogram - scheduled Bone Density - ordered Pap - today Dyspareunia 55339409 N94 .10 [id number] AMIE Parker [place] [address],[place] [address] 03/07/2024 16:14:30 03/08/2024 10:31:28 Gynecologic examination 60559482 Z01.419 WWEpostmen opausalPap - done todaySTI screen - declinedMa mmogram - order givenColon cancer screening - UTDDexa - order givenRouti ne labs - UTD/PCPRTC in 1 yr or sooner if needed Do monthly self breast exams.It is advised to get annual flu shot in the fall and she could obtain at local pharmacy. If you haven't received the Tdap vaccine in the last 10 years you should obtain one as well.Have mammogram yearly, bone density every 2-3 years and stay up to date on colon cancer screening. Engage in regular exercise. Avoid tobacco and illicit drugs. This lifestyle behavior pattern will lead to less health conditions and longer life span. If BMI greater than 25 dietary consult advised.Qu estions have been answered. Screening for malignant neoplasm of breast 911815146 Z12.39 Screening for osteoporosis 736445496 Z13.820 Dyspareunia 95269247 N94 .10 refills of estradiol creamr/b/a reviewed and accepted by pt Lesion of cervix 2749921 01 N88.9 cervical polyp noted on examh/o cervical polyps removed in the pastwe agreed to check pelvic u/s prior to proceeding with removal [id number] Sabino Max MD [place] [address],[place] [address] 03/21/2024 10:25:19 03/21/2024 11:16:16 Polyp of cervix 00528327 N84.1 N94.10 [id number] AMIE Parker [place] [address],[place] [address] 04/11/2024 10:15:17 04/11/2024 12:01:56 Lesion of cervix 796238517 N88.9 small cervical polyp removed (see procedure note)yari ated procedure wellprecau tions discussedR TC for WWE or sooner if needed Health Concerns Section Related Observation LastModified by Organization Detai ls LastModified Time None Recorded Concern Status LastModified by Organization Details LastModified Time None Recorded Advance Directives Directive N: Payers Insurance Date Sequence Insurance Name Policy Number Policy Byrd Covered Member ID Byrd Member ID Guarantor Name 04/17/2024 1 [facility] [employer] [id number] Bekah Petersen [id number] OI Bekah Petersen Notes Date Note Type Note Provider Name and Address Organization Details Recorded Time 3 text/html Annual GYNReported bypatient.History:no gynecologic complaints Menstrual cycle:menopause Urinary symptoms:No hematuria Vulva:No genital lesion Vagina:Normal vaginal discharge Breast:No breast pain; No breast lump Sexual complaints:No sexual complaints; No pain during intercourse Menopausal Symptoms:No menopausal symptoms Psychological symptoms:No depression; No anxiety Preventive measures:Encourage self breast examination; Encourage regular exercise Sabino Max MD [address], [place], [address], [facility] 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-MenopausalReporte d bypatient.Menopausal Symptoms:no menopausal symptoms;inadequacy of lubrication of vaginal mucosa Vaginal Bleeding:history of menopause having occurred; no history of post menopausal bleeding Urinary Symptoms:no hematuria; no incontinence; no nocturia; no urinary frequency Vulva:no genital lesion; no vulvar atrophy Vagina:normal vaginal discharge; no vaginal atrophy Breast:no breast lump; no nipple discharge; no breast pain Sexual Complaints:no sexual complaints Psychological Symptoms:no depression; no anxiety Preventive Measures:encourage regular mammograms starting age 40; encourage self breast examination; encourage regular exercise; encourage no tobacco useNotes:48yo wwepostmenopausal since age 43last pap 07/2022 : nilm, HPV (-)no h/o abnormal papsmammogram exa 2019cologuard done 02/21/2024 vaginal dryness, ran out of estradiol cream AMIE Parker [address], [place], [address], [facility] 03/25/2024 13:43:43 5 text/html 48yopresents for cervical polyp removal AMIE Parker [address], [place], [address], [facility] 04/11/2024 11:59:02 OBGyn Episode Ob Episode Information Episode Created Date Number of Fetuses Patient Bloodtype Patient rh Status Prepregnancy Weight lbs Domestic Partner Domestic Partner Phone Father Name Advertising Layout Worker Status 08/14/19 23 1 CLOSED Fetus Data First Name Last Name Admitted to NICU Weight (g) Sex Living Outcome Pediatric Complications Fetus ID Race Codes Race Delivery Type 2976.47 0704 M Full Term [id number] Repeat Deonte Calculation Initial Deonte Date Initial Exam Date Initial Exam Provider Initial Ultrasound Date Last Menstrual Period Date Ultra Sound Weeks Gestation 0 Eighteen To Twenty Week Deonte Update Ultra Sound Date Fundal Height At Umbil Quickening Date Ultra Sound Latest Weeks Gestation Final Deonte Confirmed By Final Deonte Confirmed Date Final Deonte Date Ultra Sound Latest Days Gestation 0 0 Menstrual History Last Menstrual Date Menses Monthly On Bcp Conception Prior Menses Frequency Hcg Plus Date Menarche Onset Age Delivery Information Delivery Date Delivery Type Labor Anesthesia Weeks Gestation Incision Type Labor Labor Length Hrs Delivered By Post Complications Tubal Sterilization Discharge Date Comments 1 38 Alan Discharge Information Feeding Method Contraceptive Method Maternal HG B and HCT Levels Ob Episode Information Episode Created Date Number of Fetuses Patient Bloodtype Patient rh Status Prepregnancy Weight lbs Domestic Partner Domestic Partner Phone Father Name Advertising Layout Worker Status 08/14/19 23 1 CLOSED Fetus Data First Name Last Name Admitted to NICU Weight (g) Sex Living Outcome Pediatric Complications Fetus ID Race Codes Race Delivery Type 2863.07 [id number] F Full Term [id number] Primary Deonte Calculation Initial Deonte Date Initial Exam Date Initial Exam Provider Initial Ultrasound Date Last Menstrual Period Date Ultra Sound Weeks Gestation 0 Eighteen To Twenty Week Deonte Update Ultra Sound Date Fundal Height At Umbil Quickening Date Ultra Sound Latest Weeks Gestation Final Deonte Confirmed By Final Deonte Confirmed Date Final Deonte Date Ultra Sound Latest Days Gestation 0 0 Menstrual History Last Menstrual Date Menses Monthly On Bcp Conception Prior Menses Frequency Hcg Plus Date Menarche Onset Age Delivery Information Delivery Date Delivery Type Labor Anesthesia Weeks Gestation Incision Type Labor Labor Length Hrs Delivered By Post Complications Tubal Sterilization Discharge Date Comments 6 36 Tashia Discharge Information Feeding Method Contraceptive Method Maternal HG B and HCT Levels Ob Episode Information Episode Created Date Number of Fetuses Patient Bloodtype Patient rh Status Prepregnancy Weight lbs Domestic Partner Domestic Partner Phone Father Name Advertising Layout Worker Status 08/14/19 23 1 CLOSED Fetus Data First Name Last Name Admitted to NICU Weight (g) Sex Living Outcome Pediatric Complications Fetus ID Race Codes Race Delivery Type , Spontane ous Deonte Calculation Initial Deonte Date Initial Exam Date Initial Exam Provider Initial Ultrasound Date Last Menstrual Period Date Ultra Sound Weeks Gestation 0 Eighteen To Twenty Week Deonte Update Ultra Sound Date Fundal Height At Umbil Quickening Date Ultra Sound Latest Weeks Gestation Final Deonte Confirmed By Final Deonte Confirmed Date Final Deonte Date Ultra Sound Latest Days Gestation 0 0 Menstrual History Last Menstrual Date Menses Monthly On Bcp Conception Prior Menses Frequency Hcg Plus Date Menarche Onset Age Delivery Information Delivery Date Delivery Type Labor Anesthesia Weeks Gestation Incision Type Labor Labor Length Hrs Delivered By Post Complications Tubal Sterilization Discharge Date Comments 0 Discharge Information Feeding Method Contraceptive Method Maternal HG B and HCT Levels
--- OUTSIDE RECORDS SUMMARY | 2024-08-22 11:04 | XMS_ITS | Continuity of Care Document ---
Author Organization [facility] Address [address] [place] [address] Phone Care Team Providers Care Medicare Sales Representative Name Role Phone Andrew Zabala MD Unavailable Unavailable Allergies, Adverse Reactions, Alerts Substance Reaction Status Criticality Penicillins Active No Information Medications Medication Instructions Dosage Effective Dates (start - stop) Status Comments doxycycline monohydrate 100 mg tablet take 1 tablet by oral route 2 times every day 100 MG - Active Procedures Procedure Date PREV VISIT, EST, AGE 40-64 OFFICE/OUTPATIENT VISIT, EST OFFICE/OUTPATIENT VISIT, EST PREV VISIT, NEW, AGE 40-64 OFFICE/OUTPATIENT VISIT, NEW Advance Directives Directive Yes / No Effective Date File Name No Information Encounters Encounter Description Practice Location Reason(s) For Visit Diagnoses Date Provider Providers Copied on Encounter [facility], [address] [place], [place], [id number], tel:[phone] [facility] No Information 5 Vj Morales. [address] [facility] [place], [id number] , [place]. tel:[phone] PREV VISIT, EST, AGE 40-64 [facility], [address] [place], [place], [id number], tel:[phone] [facility] physical (chief complaint) Encounter for general adult medical exam w abnormal findingsAnemiaRashA menorrheaMixed hyperlipidemiaProth rombin gene mutation 4 V[address] Morales. [address] [place], [id number] , [place]. tel:[phone] OFFICE/OUTPA TIENT VISIT, EST [facility], [address] [place], [place], [id number], [place] tel:[phone] [facility] Medicine postmeno1 (chief complaint) vitamin D1 (chief complaint) HLP (chief complaint) anemia1 (chief complaint) coagulopat hy1 (chief complaint) Other primary ovarian failureHyperlipidem iaVitamin D deficiency, unspecifiedAnemiaPr othrombin gene mutation 1 Vj Morales. [address], [place], [place], [id number] , [place]. tel:[phone] PREV VISIT, NEW, AGE 40-64 [facility], [address] [place], [place], [id number], [place] tel:[phone] [facility] physical (chief complaint) Encounter for general adult medical exam w abnormal findingsPalpitation sAmenorrheaFlushing Prothrombin gene mutation 1 Vj Morales. [address], [place], [place], [address] , [place]. tel:[phone] Family History Family Member Type Diagnosis Age At Onset Mother Problem Diabetes mellitus Mother Problem breast CA at 64 Father Problem Diabetes mellitus Father Problem Hypertension Brother Problem Diabetes mellitus Mother Problem Hypertension Mother Problem pheochromocytoma Payers Payer name Insurance type Covered constitution party ID Authoriza tion(s) No Information Social History Type Description Quantity Date Captured Comments Alcohol Use Details Unknown Caffeine Use Details Unknown Tobacco Use Status No Information Smoking Status No Information Sex Female Chief Complaint And Reason For Visit No Information Plan Of Treatment Date Type Action Status Referral Ordered: US, PELVIC (NONOBSTETRIC); ordered Referral Ordered: Hematology (related to Prothrombin gene mutation) ordered Referral Ordered: Referrals: Hematology. Evaluate and treat ordered Referral Ordered: MAMMOGRAM, SCREENING ordered Referral Ordered: DXA BONE DENSITY, AXIAL ordered History Of Present Illness Encounter Date Complaint History Of Prese nt Illness physical Pt needs annual physical. Pt c/o blisters type of rash left anterior forearm for two months. Pt denies any insect bite, joint pain, fever, chill, headache. Pt did work in her yard shortly prior to the onset of the rash Pt denies any spreading of the rash. Pt states that the rash is around left forearm and has not gone away in two months period of time. Pt denies any drainage Pt notices itching. Pt also has history of mild anemia, prothrombin gene mutation, HLP and she has been postmenopausal for several years. coagulopathy1 Pt has high prot hrombin level Pt denies any recurrent clotting Pt had one placenta clotting. Pt has tia with hematology in two weeks. anemia1 Pt has mild anem ia Pt has normal MCV ,Pt denies any blood loss. HLP Pt has mild HLP Pt is not any diet vitamin D1 Pt has low D. Pt has postmenopausal from early 40s postmeno1 Pt is postmenopa usal for at least 3 years .Pt has a lot of vasomotor symptoms including hot flash, weight gain, mood change, etc. Pt denies any pelvic pain. physical Pt needs annual physical. Pt has not seen MD for several years. Pt has history of placenta clot during child multiple years ago but she never developed any clot rest of the body. Pt has been postmenopausal for at least 3 years and she thinks that she is perimenopausal for close to 10 years. pt has not had any period for at least 3 years .Pt c/o frequent hot flush for the past 3 years. Pt also feels occasional palpitation frequently. Pt denies any chest pain Pt denies any sob .Pt is very active and she does cardio exercise without any chest pain or palpitation Pt denies any sob. Pt is concerned about lack of estrogen for many years and potential for loss of bone. Pt denies any fracture. Her [employer]ER will not put her on HRT due to elevated prothrombin level, which was diagnosed during placenta clot after delivery. Pt denies any other complaints Instructions Date Instruction Additional Infor mation No Information Assessments Type Assessment Date No Information
== END 2024-08-22 10:59 | disposition home or self-care (01) ==
LOC: ANHIMG 11:00
PROVIDERS: PCP Obstetrics & Gynecology; Visit Provider Nurse Practitioner
DX: Z13.820 Encounter for screening for osteoporosis (principal); Z78.0 Asymptomatic menopausal state
CPT/HCPCS: 77080